=== PATIENT | male | born 1950 | race Caucasian/White ===

== ENCOUNTER 2020-06-06 19:36 | Inpatient (IN) | payer MEDICARE, MEDICAID, SELFPAY ==
[2020-06-06] VITALS (7 sets, daily range): BP systolic 96–118; BP diastolic 52–78; PULSE 95–101; RESP 14–18; TEMP 37; O2SAT 96–98; BMI 23.1
--- NOTE | 2020-06-06 20:12 | ED_ITS ---
HPI - General Adult General: Chief complaint: Fall Stated complaint: HUM FX Time Seen by Provider: 06/06/20 19:50 Source: patient Mode of arrival: EMS Limitations: no limitations History of Present Illness: HPI narrative: Patient is a 69-year-old male who presents to ED today as a direct admit from [facility]. There was no ER to ER consult provided. According to patient and the paperwork accompanying patient, he experienced a seizure last night causing him to fall sustaining right patellar and right humeral fractures. Patient tells me he has a history of epilepsy that he normally treats with [place]. States [place] ER provider had apparently spoken to Dr. Finnegan, hospitalist, who had contacted Dr. Olivas for orthopedic consultation. Patient has no complaints currently apart from pain in his right knee and right shoulder. Onset (ago): day(s) (yesterday) Location: upper extremity (R shoulder) and lower extremity (R knee) Pain Consistency: constant Associated symptoms: Deny chest pain, dyspnea, headache(s), nausea or vomiting Review of Systems Const: Denies: fever(s) or chills Eyes: Denies: change in vision Card: Denies: chest pain Resp: Denies: dyspnea GI: Denies: abdominal pain, nausea or vomiting Musc: Reports: neck pain (chronic), back pain (chronic) and joint pain (R knee, R shoulder) Neuro: Reports: seizure-like activity; Denies: headache(s), numbness in extremities, weakness in extremities or sensory changes PFSH ED PFSH: Medical History Anxiety Chronic pain Seizure disorder Smoking addiction Surgical History History of dental surgery Hx of cholecystectomy Previous back surgery Family History Brother CAD (coronary artery disease) Social History Smoking and tobacco status: current every day smoker cigarettes [ Other cigarette details: Reports daily smoking, less than 1 pack/day. ] Alcohol intake: current Alcohol intake frequency: holidays/special occasions only Substance/Drug Use: never Lives independently: Yes Household members: none Marital status: Physical Exam Const: COMMON NORMALS: no acute distress, patient oriented x3, no limitations and alert Resp: COMMON NORMALS: normal respiratory effort and clear to auscultation bilaterally AUSCULTATION: clear to auscultation bilaterally Cardio: COMMON NORMALS: regular rate and regular rhythm RATE: regular rate RHYTHM: regular rhythm GI: COMMON NORMALS: Normal to inspection, nondistended, normoactive bowel sounds present, Soft to palpation, non-tender, No hepatosplenomegaly present and no masses PALPATION: Yes Soft to palpation and Yes No hepatosplenomegaly present Extremity: OTHER: shoulder in sling; R knee immobilizer; all extremities NV intact Neuro: COMMON NORMALS: patient oriented x3 SENSORIUM/ORIENTATION: Yes alert Skin: COMMON NORMALS: no rashes or lesions noted GENERAL SKIN EXAM: no rashes or lesions noted Course Consultations: Consultation #1: Dr. Keller-is aware of patient from Dr. Finnegan; was not sure if Dr. lOivas was contacted directly and [facility] did not send images with patient's chart so asked if I would contact Dr. Olivas to see if we need to order additional images and to make sure she is aware of consult. He will accept patient. Consultation #2: Dr. Olivas-stated she is aware of patient and neither fracture most likely will not require emergent intervention but she will consult on patient tomorrow. Did recommend we go ahead and obtain repeat images of knee/shoulder since films were not sent. Vital Signs: Vital signs: Vital Signs Temperature 98.6 F 06/06/20 19:50 Pulse Rate 96 06/06/20 20:57 Respiratory Rate 14 06/06/20 20:57 Blood Pressure 100/57 06/06/20 20:57 Pulse Oximetry 98 06/06/20 20:57 Discharge Plan Discharge Patient Disposition: Admitted As Inpatient Admit Provider: Gold Keller Clinical Impression: Seizure, Closed right humeral fracture, Closed fracture of right patella Condition: Stable Coding Level of Care Code ED Jewel Bearing Polisher for Kwasi Cuello
--- NOTE | 2020-06-06 20:34 | XR_ITS ---
WS: [id number] KNEE RIGHT TECHNIQUE: 3 views of the right knee CLINICAL INFORMATION: patellar fracture COMPARISON: None. FINDINGS: Lucency along the tibial plateau at the tibial spine suspicious for nondisplaced fracture. Additional lucency through the mid and inferior patella suspicious for nondisplaced fracture. Tiny suprapatella r effusion. XR/XR knee RT 3V* [id number] IMPRESSION: Suspected nondisplaced fractures involving the tibial plateau at the tibial spi ne and mid and inferior patella. Osteopenia. Recommend further evaluation with CT.
--- NOTE | 2020-06-06 20:34 | XR_ITS ---
WS: [id number] SHOULDER RIGHT TECHNIQUE: 3 views of the right shoulder CLINICAL INFORMATION: need Y view; humeral fracture COMPARISON: Earlier today FINDINGS: Normal acromioclavicular joint. Osteopenia with comminuted right humeral head and neck fracture. Varu s angulation with mild displacement measuring 3.3 mm. No dislocation. XR/XR shoulder RT min 2V* [id number] IMPRESSION: Comminuted humeral head and neck fracture with mild displacement and rotation. Alignment is significantly improved from previous
--- NOTE | 2020-06-06 20:53 | P.HP_ITS ---
Providers/Chief Complaint Chief Complaint: HUM FX History of Present Illness Jairo Suárez is a 69 year old gentleman with history of seizure disorder for which she follows with Dr. Wolf, transferred from [facility] after suffering a seizure and a fall yesterday. Midnight thanks with finding of proximal R humeral as well as R patellar fracture, was transferred here for higher level of care and orthopedic assessment. He reports that he normally takes Keppra at home, and says that his seizure disorder has been controlled for a while. He has not seen Dr. Wolf probably for about a year. He follows regularly with pain medicine due to chronic pain in his back. He lives alone. Review of Systems Const: Reports: other (fall); Denies: fever(s), chills, body aches or malaise Eyes: Denies: change in vision or eye redness ENMT: Denies: throat pain, oral sores or ear or mastoid pain Card: Denies: chest pain, edema, pre-syncope or dyspnea on exertion Resp: Denies: dyspnea, productive cough, change in phlegm color or hemoptysis GI: Denies: abdominal pain, nausea, vomiting, diarrhea, constipation, hematochezia or melena : Denies: flank pain, difficulty urinating, urinary frequency or hematuria Musc: Reports: extremity pain, extremity swelling (Right arm and leg after fall.) and joint pain (R knee pain); Denies: back pain, joint swelling or joint redness Skin/Breast: Denies: rash, sores or new lesions Neuro: Reports: seizure-like activity; Denies: headache(s), numbness in extremities, weakness in extremities, dizziness or confusion Endo: Denies: polyuria or polydipsia Az/Lymph: Denies: easy bleeding or purpura All/Imm: Denies: urticaria, throat swelling or tongue swelling Medications/Allergies Home Medications Medication Instructions Recorded Confirmed Last Taken Type Vitamin B12 Shot See Rx Instructions .ROUTE .COMPLEX 06/06/20 06/06/20 Unknown History diazepam [Valium] 5 mg PO TID PRN 06/06/20 06/06/20 06/06/20 History levetiracetam [Keppra XR] 1,500 mg PO DAILY 06/06/20 06/06/20 06/06/20 History oxycodone-acetaminophen [Percocet] 1 tab PO QID PRN 06/06/20 06/06/20 06/06/20 History Allergies Allergy/AdvReac Type Severity Reaction Status Date / Time Penicillins Allergy Unknown Verified 06/06/20 20:32 all generic antidepressants Allergy Unknown Uncoded 06/06/20 20:32 PFSH Acute PFSH: Medical History Anxiety Chronic pain Seizure disorder Smoking addiction Surgical History History of dental surgery Hx of cholecystectomy Previous back surgery Family History Brother CAD (coronary artery disease) Social History Smoking and tobacco status: current every day smoker cigarettes [ Other cigarette details: Reports daily smoking, less than 1 pack/day. ] Alcohol intake: current Alcohol intake frequency: holidays/special occasions only Substance/Drug Use: never Lives independently: Yes Household members: none Marital status: Vitals/I&O/Wt Last Vital Signs Temp 98.6 F 06/06/20 19:50 Pulse 97 06/06/20 20:07 Resp 17 06/06/20 20:07 BP 96/52 06/06/20 20:07 Pulse Ox 96 06/06/20 20:07 Weight last 48 hrs Weight 64.864 kg Physical Exam Const: COMMON NORMALS: no acute distress and patient oriented x3 GENERAL APPEARANCE: frail appearing HENMT: COMMON NORMALS: oropharynx normal Neck/C-Spine: COMMON NORMALS: no JVD Resp: COMMON NORMALS: normal respiratory effort and clear to auscultation bilaterally AUSCULTATION: clear to auscultation bilaterally Cardio: COMMON NORMALS: no JVD, regular rhythm, S1 normal heart sound present, S2 normal heart sound present and No murmurs present (Cardio) RHYTHM: regular rhythm HEART SOUNDS: S1 normal heart sound present and S2 normal heart sound present GI: COMMON NORMALS: Normal to inspection, nondistended, normoactive bowel sounds present, Soft to palpation and non-tender PALPATION: Yes Soft to palpation Extremity: COMMON NORMALS: no joint enlargement NARRATIVE EXTREMITY EXAM: Right knee swelling. Immobilizer in place. Right shoulder mild swelling. Tender. In sling. Neuro: COMMON NORMALS: patient oriented x3 and moves all extremities Skin: COMMON NORMALS: no rashes or lesions noted GENERAL SKIN EXAM: no rashes or lesions noted A&P Assessment and plan (1) Right patella fracture: With concern for unstable injury transferred here for additional assessment and management. For now will be admitted. Orthopedics will see him in the morning. As he lives by himself, currently with acute fractures including right lower extremity and right arm anticipate significant difficulty with mobility. Immobilizer placed at [facility]. Pain control at this time. Depending on plans for operative management, and recovery, may benefit from placement to halfway facility for rehabilitation prior to return home. Status: Acute (2) Proximal humeral fracture: Right arm sling placed at [facility]. At this time as above. Pain control. Pending assessment by orthopedics tomorrow. Status: Acute (3) Fall: Following a seizure. Subsequently with pain, swelling of right arm, right knee. With noted fractures as above. Lives alone. With right humeral fracture, right patella fracture, for significant ease with mobility and self-care. This discharge planning consultation. Status: Acute (4) Seizure: Due to suspected breakthrough seizure. Chronically on Keppra. Also Valium as needed, although states that this is for anxiety. Follows with Dr. Wolf in office. Continue Keppra at this time. Monitor for any seizure recurrence. Follow-up with neurology. Status: Acute (5) Smoking addiction: He smokes less than a pack a day. Please discuss smoking cessation encourage and assist. Will provide nicotine replacement options at this time. Status: Acute Additional A&P Information Mucus in urine: Reports longstanding history of mucus mixed in urine. Denies dysuria. Denies penile discharge. Denies any ulceration or rash. Has not had sexual contact in he states about 25 years. States that he was previously assessed by his primary care doctor without abnormal finding. For now we will start with UA. Chronic pain: Follows with pain clinic. Anxiety: Continue Valium as needed. States he cannot tolerate generic medications which caused various adverse effects. Attestations Medical Necessity Statement*: Admission of over 2 midnights is continued for assessment of management of breakthrough seizure, fall with fractures of right proximal humerus, right patella. Coding Level of Care Code Acute Brake Shoe Rebuilder for Chg Fwd Diagnoses Right patella fracture S82.001A Proximal humeral fracture S42.209A Fall W19.XXXA Seizure R56.9 Smoking addiction F17.200
[2020-06-06] MEDS: morphine 4 mg/mL SDV 1 mL IVP (23:21)
[2020-06-06] MEDS: sodium chloride 0.9% 1,000 ML 100 ML IV (23:34)
[2020-06-06] MEDS: oxyCODONE-APAP 10-325 mg Tablet 1 TAB PO (23:41)
[2020-06-07] VITALS (12 sets, daily range): BP systolic 104–126; BP diastolic 64–71; PULSE 68–100; RESP 16–20; TEMP 37.2–38.1; O2SAT 95–97
[2020-06-07 03:55] LABS: Basophils % 0.4 %; Eosinophils % 0.2 %; Hematocrit 32.6 % (42.0-52.0); Hemoglobin 10.8 g/dL (11.7-16.6); Lymphocytes # 1.3 10^3/uL (0.8-4.8); Lymphocytes % 14.6 %; Mean Corpuscular HGB Conc 33.1 g/dL (30.0-36.0); Mean Corpuscular Hemoglobin 33.5 pg (28.0-34.0); Mean Corpuscular Volume 101.2 fL (80-94); Mean Platelet Volume 9.2 fL (7.4-10.4); Monocytes # 1.1 10^3/uL (0.2-0.9); Monocytes % 11.9 %; Neutrophils # 6.47 10^3/uL (1.8-7.7); Neutrophils % 72.3 %; Nucleated Red Blood Cells % 0 %; Platelet Count 228 10^3/cmm (130-400); Red Blood Count 3.22 10^6/uL (4.1-5.3); Red Cell Distribution Width 12.5 % (12.1-15.1)
[2020-06-07 04:16] LABS: Anion Gap 12.2 (5-19); Blood Urea Nitrogen 9 mg/dL (8-23); Calcium 8.2 mg/dL (8.5-10.5); Carbon Dioxide 28 mmol/L (22-29); Chloride 96 mmol/L (98-107); Glomerular Filtration Rate 111.5 mL/min (90-130); Glucose 125 mg/dL (65-115); Osmolality Calculated 271 mOsm/kg (285-295); Potassium 4.2 mmol/L (3.5-5.1); Sodium 132 mmol/L (136-145)
[2020-06-07] MEDS: oxyCODONE-APAP 10-325 mg Tablet 1 TAB PO ×3 (06:04→23:54)
--- NOTE | 2020-06-07 06:06 | PC.NURSE ---
Patient states that he has difficulty swallowing his pills therefore he has to leave pills under his tongue to dissolve. This nurse questioned patient about difficulty swallowing food and fluids. Patients states that he must take very small bites and chew very carefully to be able to swallow. He as choked on food in the past and was brought to the ER to remove it. Patient states he does not have difficulty swallowing fluids such as water.
[2020-06-07] MEDS: morphine 4 mg/mL SDV 1 mL IVP ×4 (06:50→21:31)
--- NOTE | 2020-06-07 07:14 | PC.NURSE ---
Patient has not voided since admission last night at 2230. Patient was bladder scanned resulting in 220ml remaining in bladder. Patient states he does not have any discomfort in his abd.
--- NOTE | 2020-06-07 07:30 | CT_ITS ---
WS: [id number] NONCONTRAST CT OF THE RIGHT KNEE TECHNIQUE: Noncontrast CT of the right knee with coronal and sagittal reformatted images. CLINICAL INFORMATION: Query Tibial Plateau fractue COMPARISON: None. DLP: 668.[address] scans at [facility] use at least one of these dose optimization techniques: automat ed exposure control; mA and/or kV adjustment per patient size (includes targeted exams where dose is matched to clinical indication); or iterative reconstruction. FINDINGS: Comminuted slightly depressed fracture involving the medial tibial plateau extending to the tibial sp ine. This involves the medial tibial plateau articular surface with depression measuring 5 mm. Lateral tibial plateau appears normal. Fibula head appears normal. Normal femoral condyles. Comminuted fracture involving the inferior and lateral aspect of the patella. This involves the artic ular surface extending to the patellofemoral articulation. Hypertrophic patella. Moderate suprapatell ar effusion. CT/CT knee RT wo con* [id number] IMPRESSION: 1. Comminuted fractures involving the medial tibial plateau extending to the t ibial spine. Depression measures 5 mm. This extends to the articular surface. 2. Slightly comminuted fracture involving the inferior lateral aspect of the p atella. 3. Moderate suprapatellar effusion.
[2020-06-07] MEDS: diazePAM 5 mg Tablet PO ×2 (08:45→17:18)
[2020-06-07] MEDS: sodium chloride 0.9% 1,000 ML 100 ML IV ×2 (08:46→20:08)
--- NOTE | 2020-06-07 11:11 | PC.CHAP ---
Pastoral Care Encounter/Spiritual Assessment Type of Contact [] Declined leather goods assembler visit [] Patient/Family/Request visit [] Outpatient visit [x] Follow-up visit [] Physician referral [] Code/Alert [] Routine visit [] Staff referral [] Actively dying [] Patient sleeping [] Family support [] [] Out of room [] Palliative care [] [] Receiving care in room [] Pre-surgical visit [] Trauma [] Long length of stay [] ICU visit [] Other: Relational/Emotional Strength [] Patient feels connected with others/family/visitors/staff [] Distress [] Loneliness/isolation [] Abandonment Spirituality of Patient [] Person of Malia [] Attends Jainism of their Malia [] Believes in Prayer [] Reads Bible or Latter Day materials [] There are Spiritual issues to be addressed Tonsorial Artist Interventions [] Prayer [] Active listening [] Non-anxious presence [] Spiritual/emotional support [] Crisis/trauma care [] Spiritual counseling [] Bereavement support [] Provided bereavement packet [] Provided Bible/devotional materials [] Provided toy/stuffed animal, coloring book to patient or family member [] Provided Communion [] Anointing/Arrowsmith [] Salvation [] Completed spiritual assessment [] Other: Impact on Illness or Injury [] Angry [] Fearful [] Anxious [] Often cries [] Exhaustion [] Unable to work [] Unable to attend hindu [] Unable to walk/stand [] Unable to read [] Unable to drive [] Unable to eat/drink [] Unable to sleep [] Unable to be with family [] Patient intubated [] Other: Summary Follow-up visit Time spent with patient 5 mins
[2020-06-07] MEDS: levETIRAcetam 500 mg Tablet PO ×3 (11:58→20:07)
--- NOTE | 2020-06-07 12:44 | P.PN_ITS ---
Subjective Subjective: Interval history: Admitted overnight. H&P and labs noted. On examination patient lying comfortably in bed. States his pain is controlled. He is concerned about her right shoulder. Denies any nausea, vomiting, headache, dizziness, or at present. Vitals/I&O/Wt Last Vital Signs Temp 98.9 F 06/07/20 07:39 Pulse 77 06/07/20 07:39 Resp 16 06/07/20 11:58 BP 112/65 06/07/20 07:39 Pulse Ox 96 06/07/20 07:39 06/06/20 06/07/20 06/07/20 22:59 06:59 14:59 Intake Total 920 / 920 Output Total 0 / 0 Balance 0 / 0 920 / 920 Weight last 48 hrs Weight 53.887 kg Weight 64.864 kg Physical Exam Const: COMMON NORMALS: no acute distress and patient oriented x3 GENERAL APPEARANCE: frail appearing HENMT: COMMON NORMALS: oropharynx normal Neck/C-Spine: COMMON NORMALS: no JVD Resp: COMMON NORMALS: normal respiratory effort and clear to auscultation bilaterally AUSCULTATION: clear to auscultation bilaterally Cardio: COMMON NORMALS: no JVD, regular rhythm, S1 normal heart sound present, S2 normal heart sound present and No murmurs present (Cardio) RHYTHM: regular rhythm HEART SOUNDS: S1 normal heart sound present and S2 normal heart sound present GI: COMMON NORMALS: Normal to inspection, nondistended, normoactive bowel sounds present, Soft to palpation and non-tender PALPATION: Yes Soft to palpation Extremity: COMMON NORMALS: no joint enlargement NARRATIVE EXTREMITY EXAM: Right knee swelling. Immobilizer in place. Right shoulder mild swelling. Tender. In sling. Neuro: COMMON NORMALS: patient oriented x3 and moves all extremities Skin: COMMON NORMALS: no rashes or lesions noted GENERAL SKIN EXAM: no rashes or lesions noted Data : 06/07/20 03:14 06/07/20 03:14 A&P Assessment and plan (1) Breakthrough seizure: Status: Acute (2) Seizure: Status: Acute (3) Closed fracture of right patella: Status: Acute Qualifiers: Encounter type: initial encounter Fracture alignment: nondisplaced Fracture morphology: unspecified fracture morphology Qualified Code(s): S82.001A - Unspecified fracture of right patella, initial encounter for closed fracture (4) Closed right humeral fracture: Status: Acute Qualifiers: Encounter type: initial encounter Fracture alignment: displaced Fracture morphology: other fracture Humerus Location: proximal Qualified Code (s): S42.291A - Other displaced fracture of upper end of right humerus, initial encounter for closed fracture (5) Smoking addiction: Status: Acute (6) Fall: Status: Acute Additional A&P Information Breakthrough seizure/seizure disorder: Patient states he has been having seizures for many years along with multiple history of breakthrough seizures since 2007. Check Keppra levels. Continue home dose of Keppra at 500 mg 3 times daily. Seizure and fall precautions. Closed fracture of right patella: CT knee done. We will follow-up recommendations with Dr. Olivas. Continue the immobilizer placed at [facility] for now. Proximal humerus fracture on the right: X-ray reviewed. We will follow-up recommendations as per Dr. Olivas. Pain control. Chronic smoker: He smokes less than a pack a day. Please discuss smoking cessation encourage and assist. Will provide nicotine replacement options at this time. Anxiety: Continue Valium as needed. Given fracture of the humerus and patella patient would most likely require a SNF placement for further rehabilitation and pain control. Paperwork has been faxed to [facility] as per patient's request. Full code. Pneumatic foot pumps for SCD prophylaxis. We will hold off on therapeutic prophylaxis in case patient requires surgical correction. N.p.o. for now just in case if patient requires any surgical correction. Attestations Medical Necessity Statement*: Breakthrough seizures, fracture right patella, fracture proximal humerus of the right Time Spent in Patient Care: Greater than 35 minutes (>than 50% of time spent in counselling and/or direct pt care on unit) . Coding Level of Care Code Acute Computer Technology Instructor for Kwasi Fwyasmany Diagnoses Breakthrough seizure G40.919 Seizure R56.9 Closed fracture of right patella S82.001A Encounter type: initial encounter Fracture alignment: nondisplaced Fracture morphology: unspecified fracture morphology Closed right humeral fracture S42.291A Encounter type: initial encounter Fracture alignment: displaced Fracture morphology: other fracture Humerus Location: proximal Smoking addiction F17.200 Fall W19.XXXA
[2020-06-07 12:53] LABS: Add Urine Microscopic? NO
[2020-06-07 13:30] LABS: Bilirubin Urine Neg (NEGATIVE); Blood Urine Neg (Negative); Glucose Urine UA Norm (Normal); Ketones Urine 1+ (Negative); Leukocyte Esterase Urine Negative (Negative); Nitrate Urine Negative (Negative); Protein Urine Neg (Negative); Urine Appearance Clear (CLEAR); Urine Color Yellow (Yellow); Urobilinogen Urine 1 mg/dL (Negative); pH Urine 5 (5-7)
[2020-06-07 13:37] LABS: Amphetamines Screen Urine Negative (Negative); Barbiturates Screen Urine Negative (Negative); Benzodiazepines Screen Urine Positive (Negative); Cocaine Screen Urine Negative (Negative); Opiate Screen Urine Positive (Negative); PCP Screen Urine Negative (Negative); THC Screen Urine Negative (Negative)
[2020-06-07 14:39] LABS: Iron 39 ug/dL (59-158); Percent Saturation 18.4 % (20-50); Total Iron Binding Capacity 211 mcg/dl; Unsaturated Iron Binding 172 ug/dL (112-347)
[2020-06-07 14:47] LABS: Thyroid Stimulating Hormone 0.85 uIU/mL (0.27-4.20)
[2020-06-07 14:53] LABS: Vitamin B12 1257 pg/mL (232-1245)
[2020-06-07 14:54] LABS: Folate Level 5.2 ng/mL (4.5-32.2)
--- NOTE | 2020-06-07 14:54 | P.CONIM_ITS ---
Providers/Reason For Consult Consulting Physican/Specialty*: Dr. Callie Olivas - Orthopedics Reason for Consult*: Right shoulder and right knee injury Requesting Physcian: KAREN Oliveira Attending Physician: Esteban Jesus MD History of Present Illness History of Present Illness Jairo Suárez is a 69 year old male who presented to [facility] with regards to injuries which occurred after a fall. The patient has a history of seizures, and reportedly, he had not had one for nearly 7 months. He follows with Dr. Wolf, but he has not seen her for about a year. Upon transfer, the patient was diagnosed with a right patella fracture. He also had a right proximal humerus fracture. He was admitted for further definitive evaluation. On my evaluation of the x-rays prior to seeing the patient, there is irregularity in the proximal tibia as well as the patella. CT scan was ordered and demonstrated that the patient does indeed have a minimally depressed medial tibial plateau fracture in addition to the other 2 fractures for which he was transferred. Review of Systems Const: Denies: fever(s) or chills Eyes: Denies: change in vision Card: Denies: chest pain or dyspnea on exertion Resp: Denies: dyspnea or productive cough GI: Denies: abdominal pain Musc: Reports: extremity pain (Right shoulder and right knee after his fall) and joint pain (Right knee) Skin/Breast: Denies: erythema or changes in skin color Neuro: Reports: seizure-like activity (Which resulted in his current fall); Denies: numbness in extremities Psych: Denies: anxiety or depression Az/Lymph: Denies: easy bruising or easy bleeding Meds/Allergies Home Medications and Allergies Home Medications Medication Instructions Recorded Confirmed Last Taken Type Vitamin B12 Shot See Rx Instructions .ROUTE .COMPLEX 06/06/20 06/06/20 Unknown History diazepam [Valium] 5 mg PO TID PRN 06/06/20 06/06/20 06/06/20 History levetiracetam [Keppra XR] 1,500 mg PO DAILY 06/06/20 06/06/20 06/06/20 History oxycodone-acetaminophen [Percocet] 1 tab PO QID PRN 06/06/20 06/06/20 06/06/20 History Allergies Allergy/AdvReac Type Severity Reaction Status Date / Time Penicillins Allergy Mild ALGY-Hives Verified 06/06/20 22:51 all generic antidepressants AdvReac Intermediate ADR-Anxiety Uncoded 06/06/20 22:51 Current Medications Current Medications Generic Name Dose Route Start Last Admin Trade Name Freq PRN Reason Stop Dose Admin Diazepam 5 mg 06/06/20 22:27 06/07/20 08:45 Valium PO 5 mg TID PRN Administration unknown Sodium Chloride 1,000 mls @ 50 mls/hr 06/06/20 22:27 06/07/20 08:46 Sodium Chloride 0.9% IV 100 mls/hr .Q20H MAGDA Administration Levetiracetam 500 mg 06/07/20 09:00 06/07/20 11:58 Keppra PO 500 mg TID MAGDA Administration Morphine Sulfate 4 mg 06/06/20 22:27 06/07/20 11:58 Morphine IVP 4 mg Q4H PRN Administration SEVERE PAIN Oxycodone/Acetaminophen 1 tab 06/06/20 23:30 06/07/20 06:04 Percocet 10-325 Mg PO 1 tab Q6H PRN Administration MODERATE PAIN PFSH Acute PFSH: Medical History Anxiety Chronic pain Seizure Seizure disorder Smoking addiction Surgical History History of dental surgery Hx of cholecystectomy Previous back surgery Family History Brother CAD (coronary artery disease) Social History Smoking and tobacco status: current every day smoker cigarettes [ Other cigarette details: Reports daily smoking, less than 1 pack/day. ] Alcohol intake: current Alcohol intake frequency: holidays/special occasions only Substance/Drug Use: never Lives independently: Yes Household members: none Marital status: Vitals/I&O/Wt Last Vital Signs Temp 98.9 F 06/07/20 07:39 Pulse 77 06/07/20 07:39 Resp 16 06/07/20 11:58 BP 112/65 06/07/20 07:39 Pulse Ox 96 06/07/20 07:39 06/06/20 06/07/20 06/07/20 22:59 06:59 14:59 Intake Total 920 / 920 Output Total 0 / 0 Balance 0 / 0 920 / 920 Weight last 48 hrs Weight 118 lb 12.8 oz Weight 143 lb Physical Exam Const: COMMON NORMALS: no acute distress, average body habitus, patient oriented x3 and alert GENERAL APPEARANCE: cooperative and comfortable ORIENTATION/CONSCIOUSNESS: Yes awake HENMT: COMMON NORMALS: normocephalic and atraumatic HEAD & SCALP: normocephalic and atraumatic Eye: GENERAL EYE: appearance normal, both eyes and all related structures Chest: COMMONS NORMALS: normal inspection of the chest Resp: COMMON NORMALS: normal respiratory effort EFFORT & INSPECTION: Yes able to speak in complete sentences and Yes symmetric chest movement Extremity: RIGHT UPPER EXTREMITY: Yes shoulder joint (There is bruising about the proximal humerus. The patient was placed in an immobilizer earlier today upon my order. He complains of pain in this area.) Right shoulder: Yes Right shoulder joint inspection exam (Ecchymosis is present throughout the entire upper arm.), Yes palpation, Yes Right shoulder joint ROM exam (Not evaluated secondary to fracture. The patient is immobilized.), Yes Right shoulder joint neurovascular exam (Intact distal to the fracture site) and Yes Right shoulder joint other findings (There is tenderness to palpation over the proximal humerus.) RIGHT LOWER EXTREMITY: Yes knee joint Right knee: Yes inspection (There is no significant bruising. There is a very small abrasion over the anterior knee.), Yes palpation (The knee is tender to palpation about the medial tibial plateau as well as the patella.), Yes ROM (Not tested secondary to fracture) and Yes neurovascular exam (Intact distal to the fracture site) Neuro: COMMON NORMALS: patient oriented x3 SENSORIUM/ORIENTATION: Yes alert Psych: COMMON NORMALS: mental status grossly normal APPEARANCE: Yes grossly normal ATTITUDE: Yes calm and Yes engaged ATTENTION/CONCENTRATION: Yes attention grossly intact Skin: COMMON NORMALS: no rashes or lesions noted GENERAL SKIN EXAM: no rashes or lesions noted Data Imaging^: Other CT: I personally reviewed and interpreted this imaging study as follows: My impression: After review of the x-rays, a CT of the patient's right knee was ordered. Findings are as follows. The patient has a minimally depressed tibial plateau fracture. The depression is approximately 4 to 5 mm. And involves primarily the medial tibial plateau and extends the tibial spine. Additionally, the patient has a comminuted fracture involving the inferior lateral aspect of the patella with out compromise of the patellar mechanism. Xray Ortho: I personally reviewed and interpreted this imaging study as follows: My impression: 3 views of the patient's right shoulder were evaluated and reviewed. The images demonstrate a fracture through the surgical neck of the humerus and the humeral head appears somewhat comminuted. There is slight rotation. It is felt that the fracture is in acceptable position for healing without surgical intervention at this point. Other Xray: I personally reviewed and interpreted this imaging study as follows: My impression: Patient's knee images are reviewed. There is irregularity along the patella, but there are also multiple fracture lines apparent through the medial tibial plateau. A CT scan was ordered to further characterize the nature of this apparent tibial plateau fracture. A&P Assessment and plan (1) Right medial tibial plateau fracture: Patient has a right medial tibial plateau fracture with 4 to 5 mm of d epression. There is some comminution, but no significant displacement. At this point, the patient is being treated in a knee immobilizer. Once he has been medically stabilized, we will further discuss the possibility of surgical intervention with a lateral plate for support of this tibial plateau fracture. It is in acceptable position, however, to proceed with nonoperative interventions and treatment as well. Of concern, the patient has the right humerus fracture which would preclude him from partial to nonweightbearing that would be required after surgical intervention. Status: Acute Qualifiers: Encounter type: initial encounter Fracture type: closed Qualified Code(s): S82.131A - Displaced fracture of medial condyle of right tibia, initial encounter for closed fracture (2) Proximal humeral fracture: Currently, the patient is being treated in a shoulder immobilizer. His bones are quite osteopenic, and any sort of open reduction internal fixation would likely result in hardware failure and nonunion. Since it is in acceptable position without dislocation, we will treat him with a shoulder immobilizer for approximately 2 to 3 months. We will then begin him on a range of motion and strengthening program. If he is unable to use this extremity appropriately, we would then consider possible surgical intervention in the form of a proximal humeral prosthesis. Status: Acute Qualifiers: Encounter type: initial encounter Fracture type: closed Fracture morphology: other fracture Fracture alignment: displaced Laterality: right Qualified Code(s): S42.291A - Other displaced fracture of upper end of right humerus, initial encounter for closed fracture (3) Right patella fracture: Patient currently is in a knee immobilizer. We will continue this both as treatment for his tibial plateau fracture as well as for his patellar fracture. Consideration would be given to hinged knee brace for the medial tibial plateau fracture, however, with the patella fracture we will maintain a knee immobilizer at this point in time. Status: Acute Qualifiers: Encounter type: initial encounter Fracture type: closed Fracture morphology: comminuted Fracture alignment: displaced Qualified Code(s): S82.041A - Displaced comminuted fracture of right patella, initial encounter for closed fracture (4) Fall: Status: Acute Qualifiers: Encounter type: initial encounter Qualified Code(s): W19.XXXA - Unspecified fall, initial encounter Coding Level of Care Code Acute Traditional [employer] Health Practitioner for [facility] Fwd Diagnoses Right medial tibial plateau fracture S82.131A Encounter type: initial encounter Fracture type: closed Proximal humeral fracture S42.291A Encounter type: initial encounter Fracture type: closed Fracture morphology: other fracture Fracture alignment: displaced Laterality: right Right patella fracture S82.041A Encounter type: initial encounter Fracture type: closed Fracture morphology: comminuted Fracture alignment: displaced Fall W19.XXXA Encounter type: initial encounter
[2020-06-07] MEDS: nicotine 21 mg Patch 1 PATCH TRANSDERMA (17:18)
[2020-06-07] MEDS: acetaminophen 325 mg Tablet 650 MG PO (20:07)
[2020-06-08] VITALS (12 sets, daily range): BP systolic 97–122; BP diastolic 61–72; PULSE 82–103; RESP 14–18; TEMP 36.6–37.6; O2SAT 92–98
[2020-06-08] MEDS: morphine 4 mg/mL SDV 1 mL IVP ×3 (02:29→12:13)
[2020-06-08] MEDS: diazePAM 5 mg Tablet PO (03:58)
[2020-06-08 04:43] LABS: Basophils % 0.6 %; Eosinophils # 0.1 10^3/uL (0.0-0.8); Eosinophils % 1.3 %; Hematocrit 27.4 % (42.0-52.0); Hemoglobin 8.9 g/dL (11.7-16.6); Lymphocytes # 1.2 10^3/uL (0.8-4.8); Lymphocytes % 17.8 %; Mean Corpuscular HGB Conc 32.5 g/dL (30.0-36.0); Mean Corpuscular Hemoglobin 34.5 pg (28.0-34.0); Mean Corpuscular Volume 106.2 fL (80-94); Mean Platelet Volume 9.4 fL (7.4-10.4); Monocytes # 0.7 10^3/uL (0.2-0.9); Monocytes % 10.8 %; Neutrophils # 4.66 10^3/uL (1.8-7.7); Neutrophils % 69.1 %; Nucleated Red Blood Cells % 0 %; Platelet Count 192 10^3/cmm (130-400); Red Blood Count 2.58 10^6/uL (4.1-5.3); Red Cell Distribution Width 12.5 % (12.1-15.1); White Blood Count 6.8 10^3/uL (4.0-10.0)
[2020-06-08 05:15] LABS: Chol HDL Ratio 1.81 mg/dL (1.0-5.00); Cholesterol 87 mg/dL (0-200); HDL Cholesterol 48 mg/dL (60-100); LDL Cholesterol Calculated 27 mg/dL (50-129); Triglycerides 62 mg/dL (0-150); VLDL Cholestrol Calculation 12 mg/dL (0-30)
[2020-06-08 05:20] LABS: Alanine Aminotransferase 11 U/L (0-41); Albumin Level 3.1 g/dL (3.5-5.2); Alkaline Phosphatase 61 IU/L (40-130); Anion Gap 9.7 (5-19); Aspartate Amino Transferase 14 U/L (0-40); Blood Urea Nitrogen 7 mg/dL (8-23); Calcium 7.5 mg/dL (8.5-10.5); Carbon Dioxide 26 mmol/L (22-29); Chloride 95 mmol/L (98-107); Globulin 2.3 g/dL (1.3-4.6); Glomerular Filtration Rate 133.2 mL/min (90-130); Glucose 103 mg/dL (65-115); Osmolality Calculated 260 mOsm/kg (285-295); Potassium 3.7 mmol/L (3.5-5.1); Sodium 127 mmol/L (136-145); Total Bilirubin 0.6 mg/dL (0.15-1.2); Total Protein 5.4 g/dL (6.6-8.7)
[2020-06-08 05:30] LABS: Estmated Average Glucose 80; Hemoglobin A1C 4.4 % (4.0-6.0)
[2020-06-08] MEDS: oxyCODONE-APAP 10-325 mg Tablet 1 TAB PO ×3 (09:18→21:47)
[2020-06-08] MEDS: levETIRAcetam 500 mg Tablet PO ×3 (09:18→21:49)
--- NOTE | 2020-06-08 12:51 | P.PN_ITS ---
Subjective Subjective: Interval history: Patient is lying comfortably in bed. His shoulder does not appear particularly tender, but he has not been out of bed with physical therapy at all. He understands he will likely require fdc at the time of discharge. Vitals/I&O/Wt Last Vital Signs Temp 97.9 F 06/08/20 11:57 Pulse 101 H 06/08/20 11:57 Resp 16 06/08/20 12:13 BP 111/64 06/08/20 11:57 Pulse Ox 97 06/08/20 11:57 06/07/20 06/08/20 06/08/20 22:59 06:59 14:59 Intake Total 1000 / 1920 1000 / 1000 Output Total 425 / 425 250 / 250 Balance 575 / 1495 750 / 750 Weight last 48 hrs Weight 118 lb 12.8 oz Weight 143 lb Physical Exam Const: COMMON NORMALS: no acute distress, average body habitus, patient oriented x3 and alert GENERAL APPEARANCE: cooperative and comfortable ORIENTATION/CONSCIOUSNESS: Yes awake HENMT: COMMON NORMALS: normocephalic and atraumatic HEAD & SCALP: normocephalic and atraumatic Eye: GENERAL EYE: appearance normal, both eyes and all related structures Chest: COMMONS NORMALS: normal inspection of the chest Resp: COMMON NORMALS: normal respiratory effort EFFORT & INSPECTION: Yes able to speak in complete sentences and Yes symmetric chest movement Extremity: RIGHT UPPER EXTREMITY: Yes shoulder joint (The right upper extremity is bruised secondary to the patient's fracture. There has been no sig nificant deformity to the arm.) Right shoulder: Yes Right shoulder joint inspection exam (Neurovascular status appears intact.), Yes Right shoulder joint ROM exam (Not evaluated secondary to fracture. There is some tenderness to palpation over the proximal humerus.) and Yes Right shoulder joint neurovascular exam (Intact distal to the fracture.) RIGHT LOWER EXTREMITY: Yes knee joint (The knee remains in a knee immobilizer.) Right knee: Yes inspection (No significant swelling distal to the immobilizer.), Yes ROM (Not tested secondary to fracture.) and Yes neurovascular exam (Intact distal to the fracture.) Neuro: COMMON NORMALS: patient oriented x3 SENSORIUM/ORIENTATION: Yes alert Psych: COMMON NORMALS: mental status grossly normal APPEARANCE: Yes grossly normal ATTITUDE: Yes calm and Yes engaged ATTENTION/CONCENTRATION: Yes attention grossly intact Skin: COMMON NORMALS: no rashes or lesions noted GENERAL SKIN EXAM: no rashes or lesions noted Data : 06/08/20 03:50 06/08/20 03:50 A&P Assessment and plan (1) Right medial tibial plateau fracture: Patient has a right medial tibial plateau fracture with 4 to 5 mm of depression. There is some comminution, but no significant displacement. At this point, now that we have the CT result, the patient will be transitioned to a Dickey style hinged knee brace. We will set this at 0 to 30 degrees. Also, we will have him participate with physical therapy nonweightbearing to touchdown weightbearing if necessary. Once he has been medically stabilized, we will further discuss the possibility of surgical intervention with a lateral plate for support of this tibial plateau fracture, but this will be done in a delayed fashion. It is in acceptable position, however, to proceed with nonoperative interventions and treatment as well. Of concern, the patient has the right humerus fracture which would preclude him from partial to nonweightbearing that would be required after surgical intervention. Status: Acute Qualifiers: Encounter type: initial encounter Fracture type: closed Qualified Code(s): S82.131A - Displaced fracture of medial condyle of right tibia, initial encounter for closed fracture (2) Proximal humeral fracture: Currently, the patient is being treated in a shoulder immobilizer. His bones are quite osteopenic, and any sort of open reduction internal fixation would likely result in hardware failure and nonunion. Since it is in acceptable position without dislocation, we will treat him with a shoulder immobilizer for approximately 2 to 3 months. We will then begin him on a range of motion and strengthening program. If he is unable to use this extremity appropriately, we would then consider possible surgical intervention in the form of a proximal humeral prosthesis. Status: Acute Qualifiers: Encounter type: initial encounter Fracture alignment: displaced Fracture morphology: other fracture Fracture type: closed Laterality: right Qualified Code(s): S42.291A - Other displaced fracture of upper end of right humerus, initial encounter for closed fracture (3) Right patella fracture: Patient currently is in a knee immobilizer, he will be transitioned to a Dickey style knee brace. We will continue this both as treatment for his tibial plateau fracture as well as for his patellar fracture. Status: Acute Qualifiers: Encounter type: initial encounter Fracture alignment: displaced Fracture morphology: comminuted Fracture type: closed Qualified Code(s): S82.041A - Displaced comminuted fracture of right patella, initial encounter for closed fracture (4) Fall: Status: Acute Qualifiers: Encounter type: initial encounter Qualified Code(s): W19.XXXA - Unspecified fall, initial encounter Attestations Medical Necessity Statement*: Patient continues to require hospitalization for medical evaluation of his seizure activity. 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
[2020-06-08] MEDS: nicotine 21 mg Patch 1 PATCH TRANSDERMA (13:18)
--- NOTE | 2020-06-08 13:58 | PM.PN ---
Subjective Subjective: Interval history: Admitted overnight. H&P and labs noted. On examination patient lying comfortably in bed. States his pain is controlled. He is concerned about her right shoulder. Denies any nausea, vomiting, headache, dizziness, or at present. Vitals/I&O/Wt Last Vital Signs Temp 97.9 F 06/08/20 11:57 Pulse 101 H 06/08/20 11:57 Resp 16 06/08/20 12:13 BP 111/64 06/08/20 11:57 Pulse Ox 97 06/08/20 11:57 06/07/20 06/08/20 06/08/20 22:59 06:59 14:59 Intake Total 1000 / 1920 1000 / 1000 Output Total 425 / 425 250 / 250 Balance 575 / 1495 750 / 750 Weight last 48 hrs Weight 53.887 kg Weight 64.864 kg Physical Exam Const: COMMON NORMALS: no acute distress and patient oriented x3 GENERAL APPEARANCE: frail appearing HENMT: COMMON NORMALS: oropharynx normal Neck/C-Spine: COMMON NORMALS: no JVD Resp: COMMON NORMALS: normal respiratory effort and clear to auscultation bilaterally AUSCULTATION: clear to auscultation bilaterally Cardio: COMMON NORMALS: no JVD, regular rhythm, S1 normal heart sound present, S2 normal heart sound present and No murmurs present (Cardio) RHYTHM: regular rhythm HEART SOUNDS: S1 normal heart sound present and S2 normal heart sound present GI: COMMON NORMALS: Normal to inspection, nondistended, normoactive bowel sounds present, Soft to palpation and non-tender PALPATION: Yes Soft to palpation Extremity: COMMON NORMALS: no joint enlargement NARRATIVE EXTREMITY EXAM: Right knee swelling. Immobilizer in place. Right shoulder mild swelling. Tender. In sling. Neuro: COMMON NORMALS: patient oriented x3 and moves all extremities Skin: COMMON NORMALS: no rashes or lesions noted GENERAL SKIN EXAM: no rashes or lesions noted Data : 06/08/20 03:50 06/08/20 03:50 A&P Assessment and plan (1) Breakthrough seizure: Status: Acute (2) Seizure: Due to suspected breakthrough seizure. Chronically on Keppra. Also Valium as needed, although states that this is for anxiety. Follows with Dr. Wolf in office. Continue Keppra at this time. Monitor for any seizure recurrence. Follow-up with neurology. Status: Acute (3) Closed fracture of right patella: Status: Acute Qualifiers: Encounter type: initial encounter Fracture alignment: nondisplaced Fracture morphology: unspecified fracture morphology Qualified Code(s): S82.001A - Unspecified fracture of right patella, initial encounter for closed fracture (4) Closed right humeral fracture: Status: Acute Qualifiers: Encounter type: initial encounter Fracture alignment: displaced Fracture morphology: other fracture Humerus Location: proximal Qualified Code(s): S42.291A - Other displaced fracture of upper end of right humerus, initial encounter for closed fracture (5) Smoking addiction: He smokes less than a pack a day. Please discuss smoking cessation encourage and assist. Will provide nicotine replacement options at this time. Status: Acute (6) Fall: Following a seizure. Subsequently with pain, swelling of right arm, right knee. With noted fractures as above. Lives alone. With right humeral fracture, right patella fracture, for significant ease with mobility and self-care. This discharge planning consultation. Status: Acute Qualifiers: Encounter type: initial encounter Qualified Code(s): W19.XXXA - Unspecified fall, initial encounter Additional A&P Information Breakthrough seizure/seizure disorder: Patient states he has been having seizures for many years along with multiple history of breakthrough seizures since 2007. Keppra levels awaited. Continue home dose of Keppra at 500 mg 3 times daily. Seizure and fall precautions. Closed fracture of right patella: CT knee done. C/w PT recs as per Dr. Olivas of non weight bearing. Proximal humerus fracture on the right: X-ray reviewed. C/w shoulder immobilizer. We will follow-up recommendations as per Dr. Olivas. Pain control. Anemia: Most likely dilutional along with MOI. Vit B12 and folate levels appreciated. Hb today 8.4. Patient is hemodynamically stable. No active bleeding. Will transfuse if hb less than 7. Start on oral iron supplementation. Check FOBT Chronic smoker: He smokes less than a pack a day. Please discuss smoking cessation encourage and assist. Will provide nicotine replacement options at this time. Anxiety: Continue Valium as needed. Given fracture of the humerus and patella patient would most likely require a SNF placement for further rehabilitation and pain control. Paperwork has been faxed to [facility] as per patient's request. ALLOW [employer] Pneumatic foot pumps for SCD prophylaxis. We will hold off on therapeutic prophylaxis in case patient requires surgical correction. Soft mechanical diet. Diet has been changed as per the speech and swallow recommendations. Stop IV fluids. COVID-19 has been sent yesterday and the results are awaited for possible need of negative result before being transferred to the halfway. Attestations Medical Necessity Statement*: Breakthrough seizures, right patellar and proximal humerus fracture, awaiting safe discharge plan, COVID-19 to be ruled out Time Spent in Patient Care: Greater than 35 minutes (>than 50% of time spent in counselling and/or direct pt care on unit). 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
[2020-06-08] MEDS: ferrous gluconate 324 mg Tablet PO (18:59)
[2020-06-08 20:10] LABS: Coronavirus Lab Test PTC Negative
[2020-06-09] VITALS (8 sets, daily range): BP systolic 106–119; BP diastolic 62–71; PULSE 78–87; RESP 14–20; TEMP 36.7–37.2; O2SAT 18–98
[2020-06-09] MEDS: oxyCODONE-APAP 10-325 mg Tablet 1 TAB PO ×3 (03:44→13:38)
[2020-06-09 05:00] LABS: Basophils % 0.5 %; Eosinophils # 0.1 10^3/uL (0.0-0.8); Eosinophils % 1.5 %; Hematocrit 25.2 % (42.0-52.0); Hemoglobin 8.4 g/dL (11.7-16.6); Lymphocytes # 1.2 10^3/uL (0.8-4.8); Lymphocytes % 18.3 %; Mean Corpuscular HGB Conc 33.3 g/dL (30.0-36.0); Mean Corpuscular Hemoglobin 34.3 pg (28.0-34.0); Mean Corpuscular Volume 102.9 fL (80-94); Monocytes # 0.7 10^3/uL (0.2-0.9); Monocytes % 9.9 %; Neutrophils # 4.53 10^3/uL (1.8-7.7); Neutrophils % 69.2 %; Nucleated Red Blood Cells % 0 %; Platelet Count 209 10^3/cmm (130-400); Red Blood Count 2.45 10^6/uL (4.1-5.3); Red Cell Distribution Width 12.4 % (12.1-15.1); White Blood Count 6.6 10^3/uL (4.0-10.0)
[2020-06-09] MEDS: levETIRAcetam 500 mg Tablet PO (08:43)
[2020-06-09] MEDS: ferrous gluconate 324 mg Tablet PO (08:43)
--- NOTE | 2020-06-09 11:08 | DCPLANNER ---
Pg 2 of IM updated and reviewed with pt. No questions.
--- NOTE | 2020-06-09 12:36 | PM.DCS ---
Discharge Providers Date of Admission: 06/06/20 20:54 Date of Discharge: June 09, 2020 Attending Provider at Admission: Gold Keller Attending Provider at Discharge: Esteban Jesus MD Consults: Orthopedics: Dr. Olivas Diagnoses at Discharge Discharge Diagnosis (1) Breakthrough seizure: Status: Acute (2) Seizure: Status: Acute (3) Closed fracture of right patella: Status: Acute Qualifiers: Encounter type: initial encounter Fracture alignment: nondisplaced Fracture morphology: unspecified fracture morphology Qualified Code(s): S82.001A - Unspecified fracture of right patella, initial encounter for closed fracture (4) Closed right humeral fracture: Status: Acute Qualifiers: Encounter type: initial encounter Fracture alignment: displaced Fracture morphology: other fracture Humerus Location: proximal Qualified Code(s): S42.291A - Other displaced fracture of upper end of right humerus, initial encounter for closed fracture (5) Smoking addiction: Status: Acute (6) Fall: Status: Acute Qualifiers: Encounter type: initial encounter Qualified Code(s): W19.XXXA - Unspecified fall, initial encounter Reason for Visit Reason for Visit: [facility] Hospital Course Discharge Summary: Jairo Suárez is a 69 year old gentleman with history of seizure disorder for which she follows with Dr. Wolf, transferred from [facility] after suffering a seizure and a fall yesterday. Midnight thanks with finding of proximal R humeral as well as R patellar fracture, was transferred here for higher level of care and orthopedic assessment. He reports that he normally takes Keppra at home, and says that his seizure disorder has been controlled for a while. He has not seen Dr. Wolf probably for about a year. He follows regularly with pain medicine due to chronic pain in his back. He lives alone. For his fracture on the right patella and proximal humerus he was seen by orthopedics and was advised for conservative treatment with pain management and physical therapy for now with possible surgery later. Patient is to follow-up with Dr. Olivas as an outpatient. He most likely require surgical intervention with lateral plate for support of his tibial plateau fracture. For shoulder he supposed to be in immobilizer for approximately 2 to 3 months. Patient did not have any further seizures while being in hospital. He was hemodynamically stable. During hospitalization his hemoglobin plateaued at around 8.4 which most likely is his baseline. Iron panel showed iron deficiency anemia and so is been discharged on oral iron supplementation. He is advised to follow-up with Dr. Wolf within 1 month. He is been discharged hemodynamically stable condition. Physical Exam Const: COMMON NORMALS: no acute distress and patient oriented x3 GENERAL APPEARANCE: frail appearing HENMT: COMMON NORMALS: oropharynx normal Neck/C-Spine: COMMON NORMALS: no JVD Resp: COMMON NORMALS: normal respiratory effort and clear to auscultation bilaterally AUSCULTATION: clear to auscultation bilaterally Cardio: COMMON NORMALS: no JVD, regular rhythm, S1 normal heart sound present, S2 normal heart sound present and No murmurs present (Cardio) RHYTHM: regular rhythm HEART SOUNDS: S1 normal heart sound present and S2 normal heart sound present GI: COMMON NORMALS: Normal to inspection, nondistended, normoactive bowel sounds present, Soft to palpation and non-tender PALPATION: Yes Soft to palpation Extremity: COMMON NORMALS: no joint enlargement NARRATIVE EXTREMITY EXAM: Right knee swelling. Immobilizer in place. Right shoulder mild swelling. Tender. In sling. Neuro: COMMON NORMALS: patient oriented x3 and moves all extremities Skin: COMMON NORMALS: no rashes or lesions noted GENERAL SKIN EXAM: no rashes or lesions noted Discharge Data Data Completed and Pending: Completed Studies During Hospitalization Category Date Time Status CT knee RT wo con * [id number] Routine Cat Scan 06/07/20 07:30 Completed XR knee RT 3V* [id number] Urgent Exams 06/06/20 20:34 Completed XR shoulder RT mi n 2V* [id number] Urgent Exams 06/06/20 20:34 Completed Pending at discharge Category Date Time Status Immunochemical Fe sierra OCB Routine Lab 06/08/20 11:23 Uncollected Levetiracetam Kep pra Routine Lab 06/07/20 03:14 Received Labs from last 24 hours 06/09/20 06/07/20 04:50 19:20 WBC 6.6 RBC 2.45 L Hgb 8.4 L Hct 25.2 L MCV 102.9 H MCH 34.3 H MCHC 33.3 RDW 12.4 Plt Count 209 MPV 9.0 Neut % (Auto) 69.2 Lymph % (Auto) 18.3 Reynolds % (Auto) 9.9 Eos % (Auto) 1.5 Baso % (Auto) 0.5 Neut # (Auto) 4.53 Lymph # (Auto) 1.2 Reynolds # (Auto) 0.7 Eos # (Auto) 0.1 Baso # (Auto) 0.0 Nucleated RBC % (a uto) 0 Nucleated RBCs # 0.0 Nasal/Oral COVID-1 9 PCR Negative Vitals: Last Vital Signs Temp 98.2 F 06/09/20 11:01 Pulse 79 06/09/20 11:01 Resp 18 06/09/20 11:01 BP 106/68 06/09/20 11:01 Pulse Ox 98 06/09/20 11:01 Discharge Plan Discharge Patient Disposition: Xfer SNF Condition: Stable Prescriptions: New ferrous gluconate 324 mg (37.5 mg iron) Tablet 324 mg PO BIDWM Qty: 60 RF: 0 folic acid 1 mg tablet 1 mg PO DAILY Qty: 30 RF: 0 Continued Percocet 7.5-325 mg Tablet 1 tab PO QID PRN (Reason: Pain) RF: 0 Valium 5 mg Tablet 5 mg PO TID PRN (Reason: unknown) RF: 0 Keppra XR 750 mg Tablet Extended Release 24 Hr 1,500 mg PO DAILY RF: 0 Vitamin B12 Shot See Rx Instructions .ROUTE .COMPLEX RF: 0 Discharge Orders: Discharge Order (Routine); Ordered 06/09/20 Ordered By: Esteban Jesus Referrals: [facility] [Outside] Salima Wolf MD [Physician] - 1 month Callie Olivas MD [Physician] - 7-10 days Discharge Diet: Regular Discharge Activity: Use walker/crutches as instructed, Wheelchair as instructed and As per PT/OT instructions Activity Restrictions/Additional Instructions: Nonweightbearing right lower extremity Follow up with Dr. Olivas on set appointment Discharge Attestations Time Spent in Discharge Care*: greater than 30 min Specific Discharge Activities: Specific discharge activities: educating patient, discussing with pcp/other providers, discussing with top case assembler/social workers/dc planners, documenting/other paperwork and evaluating patient/reviewing data Status at Discharge: Cognitive status at discharge: cognitively intact, Behavioral status at discharge: cooperative, Functional status at discharge: other assisted ambulation Overall status at discharge: patient is not back to baseline Quality Metrics Clinical Quality Measures During this hospital stay, did patient experience: None Coding Level of Care Code Acute Director Of Materials Management for [facility] Fwd Diagnoses Breakthrough seizure G40.919 Seizure R56.9 Closed fracture of right patella S82.001A Encounter type: initial encounter Fracture alignment: nondisplaced Fracture morphology: unspecified fracture morphology Closed right humeral fracture S42.291A Encounter type: initial encounter Fracture alignment: displaced Fracture morphology: other fracture Humerus Location: proximal Smoking addiction F17.200 Fall W19.XXXA Encounter type: initial encounter
[2020-06-09] MEDS: diazePAM 5 mg Tablet PO (13:38)
--- NOTE | 2020-06-09 14:51 | P.PN_ITS ---
Subjective Subjective: Interval history: The first time, the patient is sitting up in a chair. He is anxious to get back to bed. His knee immobilizer is in place. His knee is not hot or red or swollen. He has no significant complaints. He is awaiting transport to longterm. Vitals/I&O/Wt Last Vital Signs Temp 98.2 F 06/09/20 11:01 Pulse 79 06/09/20 11:01 Resp 16 06/09/20 13:38 BP 106/68 06/09/20 11:01 Pulse Ox 98 06/09/20 11:01 06/08/20 06/09/20 06/09/20 22:59 06:59 14:59 Intake Total 200 / 1400 240 / 1640 250 / 250 Output Total 650 / 1200 1025 / 2225 600 / 600 Balance -450 / 200 -785 / -585 -350 / -350 Weight last 48 hrs Weight 160 lb 9 oz Physical Exam Const: COMMON NORMALS: no acute distress, average body habitus, patient oriented x3 and alert GENERAL APPEARANCE: cooperative and comfortable ORIENTATION/CONSCIOUSNESS: Yes awake HENMT: COMMON NORMALS: normocephalic and atraumatic HEAD & SCALP: normocephalic and atraumatic Eye: GENERAL EYE: appearance normal, both eyes and all related structures Chest: COMMONS NORMALS: normal inspection of the chest Resp: COMMON NORMALS: normal respiratory effort EFFORT & INSPECTION: Yes able to speak in complete sentences and Yes symmetric chest movement Extremity: RIGHT UPPER EXTREMITY: Yes shoulder joint (Remains in the immobilizer. There is still ecchymosis. He remains neurologically intact.) RIGHT LOWER EXTREMITY: Yes knee joint (The abrasion over the knee still appears without evidence of infection. There is no erythema. There is minimal to no swelling.) Neuro: COMMON NORMALS: patient oriented x3 SENSORIUM/ORIENTATION: Yes alert Psych: COMMON NORMALS: mental status grossly normal APPEARANCE: Yes grossly normal ATTITUDE: Yes calm and Yes engaged ATTENTION/CONCENTRATION: Yes attention grossly intact Skin: COMMON NORMALS: no rashes or lesions noted GENERAL SKIN EXAM: no rashes or lesions noted Data : 06/09/20 04:50 06/08/20 03:50 A&P Assessment and plan (1) Right medial tibial plateau fracture: Patient has a right medial tibial plateau fracture with 4 to 5 mm of depression. There is some comminution, but no significant displacement. The patient is advised to continue with the [place] style hinged knee brace. We will set this at 0 to 30 degrees. Also, we will have him participate with physical therapy nonweightbearing to touchdown weightbearing if necessary. Once he has been medically stabilized, we will further discuss the possibility of surgical intervention with a lateral plate for support of this tibial plateau fracture, but this will be done in an outpatient fashion if determined necessary. It is in acceptable position, however, to proceed with nonoperative interventions and treatment as well. Of concern, the patient has the right humerus fracture which would preclude him from partial to nonweightbearing that would be required after surgical intervention. Status: Acute Qualifiers: Encounter type: initial encounter Fracture type: closed Qualified Code(s): S82.131A - Displaced fracture of medial condyle of right tibia, initial encounter for closed fracture (2) Proximal humeral fracture: Currently, the patient is being treated in a shoulder immobilizer. His bones are quite osteopenic, and any sort of open reduction internal fixation w ould likely result in hardware failure and nonunion. Since it is in acceptable position without dislocation, we will treat him with a shoulder immobilizer for approximately 2 to 3 months. We will then begin him on a range of motion and strengthening program. If he is unable to use this extremity appropriately, we would then consider possible surgical intervention in the form of a proximal humeral prosthesis. Status: Acute Qualifiers: Encounter type: initial encounter Fracture type: closed Fracture morphology: other fracture Fracture alignment: displaced Laterality: right Qualified Code(s): S42.291A - Other displaced fracture of upper end of right humerus, initial encounter for closed fracture (3) Right patella fracture: Patient currently is in a knee immobilizer, he will be transitioned to a [place] style knee brace. We will continue this both as treatment for his tibial plateau fracture as well as for his patellar fracture. Status: Acute Qualifiers: Encounter type: initial encounter Fracture type: closed Fracture morphology: comminuted Fracture alignment: displaced Qualified Code(s): S82.041A - Displaced comminuted fracture of right patella, initial encounter for closed fracture (4) Fall: Status: Acute Qualifiers: Encounter type: initial encounter Qualified Code(s): W19.XXXA - Unspecified fall, initial encounter Attestations Medical Necessity Statement*: Per hospitalist service, the patient is to be discharged today. Coding Level of Care Code Acute Senior Quality Engineer for [facility] Fwd Diagnoses Right medial tibial plateau fracture S82.131A Encounter type: initial encounter Fracture type: closed Proximal humeral fracture S42.291A Encounter type: initial encounter Fracture type: closed Fracture morphology: other fracture Fracture alignment: displaced Laterality: right Right patella fracture S82.041A Encounter type: initial encounter Fracture type: closed Fracture morphology: comminuted Fracture alignment: displaced Fall W19.XXXA Encounter type: initial encounter
--- NOTE | 2020-06-09 14:53 | PC.NURSE ---
Report to Rocio SHAH at [facility] at this time.
--- NOTE | 2020-06-09 15:30 | PC.NURSE ---
Patient assisted to a wheel chair at this time. Patient has sling and swath in place to the right arm as well as a knee immobilizer to the right leg. Patient IV removed intact. Patient's belongings including his home medications sent with patient in his belongings bag. Rocio at [facility] notified of the prescriptions in the patient's belongings bag. Patient is A&Ox3. Respirations even and non-labored on room air. Patient pushed to transport van to be taken to [facility].
[2020-06-11 10:56] LABS: Levetiracetam Keppra 10.6 mcg/mL
== END 2020-06-09 15:15 | disposition skilled nursing facility (03) | DRG 563 ==
LOC: ER 20:33 → MEDSURG 21:22
PROVIDERS: Emergency Medicine; Admitting Provider Internal Medicine; Visit Provider Student in an Organized Health Care Education/Training Program
DX: S82.001A Unspecified fracture of right patella, initial encounter for closed fracture (principal); S42.209A Unspecified fracture of upper end of unspecified humerus, initial encounter for closed fracture; S82.251A Displaced comminuted fracture of shaft of right tibia, initial encounter for closed fracture; W19.XXXA Unspecified fall, initial encounter; F17.210 Nicotine dependence, cigarettes, uncomplicated; R56.9 Unspecified convulsions; F41.9 Anxiety disorder, unspecified; G89.29 Other chronic pain
CPT/HCPCS: 12345; 36415; 73030; 73562; 73700; 80048; 80053; 80061; 80177; 80306; 81003; 82607; 82746; 83036; 83540; 83550; 84443; 85025; 87635; 92610; 96375; 97110; 97161; 97530; 97760; 99283; J2270; J7030; L3670

== ENCOUNTER → 2020-07-07 11:28 | Outpatient (BNVA) | payer OTHER, MEDICAID, SELFPAY | PROVIDERS: Visit Provider Specialist | DX: S82.001A Unspecified fracture of right patella, initial encounter for closed fracture (principal); S42.291A Other displaced fracture of upper end of right humerus, initial encounter for closed fracture; S82.002A Unspecified fracture of left patella, initial encounter for closed fracture; S82.131A Displaced fracture of medial condyle of right tibia, initial encounter for closed fracture; X58.XXXA Exposure to other specified factors, initial encounter | CPT/HCPCS: 73030; 73560; 73565 ==

== ENCOUNTER → 2020-08-11 11:32 | Outpatient (BNVA) | payer OTHER, MEDICAID, SELFPAY | PROVIDERS: Visit Provider Specialist | DX: S82.001A Unspecified fracture of right patella, initial encounter for closed fracture (principal); S42.291A Other displaced fracture of upper end of right humerus, initial encounter for closed fracture; S82.131A Displaced fracture of medial condyle of right tibia, initial encounter for closed fracture; S82.002A Unspecified fracture of left patella, initial encounter for closed fracture; X58.XXXA Exposure to other specified factors, initial encounter | CPT/HCPCS: 73030; 73562 ==

== ENCOUNTER → 2020-09-15 16:12 | Outpatient (BNVA) | payer MEDICARE, MEDICAID, SELFPAY | PROVIDERS: Visit Provider Specialist | DX: S42.291A Other displaced fracture of upper end of right humerus, initial encounter for closed fracture (principal); S82.131A Displaced fracture of medial condyle of right tibia, initial encounter for closed fracture; S82.001A Unspecified fracture of right patella, initial encounter for closed fracture; S82.002A Unspecified fracture of left patella, initial encounter for closed fracture; S82.141D Displaced bicondylar fracture of right tibia, subsequent encounter for closed fracture with routine healing | CPT/HCPCS: 73030; 73562 ==

== ENCOUNTER → 2020-11-07 13:54 | Outpatient (BNVA) | payer MEDICARE, MEDICAID, SELFPAY | PROVIDERS: Visit Provider Specialist | DX: S82.131D Displaced fracture of medial condyle of right tibia, subsequent encounter for closed fracture with routine healing (principal); S82.001D Unspecified fracture of right patella, subsequent encounter for closed fracture with routine healing; S42.291D Other displaced fracture of upper end of right humerus, subsequent encounter for fracture with routine healing; X58.XXXD Exposure to other specified factors, subsequent encounter; Z46.89 Encounter for fitting and adjustment of other specified devices | CPT/HCPCS: 73030; 73560; 73562; 97760; L1851 ==

== ENCOUNTER 2020-11-07 15:03 | Outpatient (CLI) | payer MEDICARE, MEDICAID, SELFPAY | END 2020-11-07 15:04 | disposition home or self-care (01) | LOC: SPT 15:04 | PROVIDERS: Visit Provider Specialist | DX: Z46.89 Encounter for fitting and adjustment of other specified devices (principal); S82.131D Displaced fracture of medial condyle of right tibia, subsequent encounter for closed fracture with routine healing; X58.XXXD Exposure to other specified factors, subsequent encounter | CPT/HCPCS: 97760; L1851 ==

== ENCOUNTER 2021-02-03 13:54 | Emergency (ER) | payer MEDICARE, MEDICAID, SELFPAY ==
[2021-02-03 13:59] VITALS: BP 171/86; PULSE 86; RESP 20; TEMP 36.8; O2SAT 98; BMI 20.5
--- NOTE | 2021-02-03 14:07 | XR_ITS ---
WS: [id number] Portable AP upright chest, 02/03/2021 Clinical Data: dyspnea Comparison: PA and lateral chest, 06/29/2019. Findings: No nodules, masses or effusions are seen. The heart is normal. The pulmonary vascularity is not increased. No pneumonia or pneumothorax is seen. The aortic arch and descending aorta shows calc ification and tortuosity. Monitor leads are on the chest wall. The diaphragms are flattened. XR/XR chest 1V portable [id number] Impression: Atherosclerosis and hyperinflation.
--- NOTE | 2021-02-03 14:09 | ECG_ITS ---
[facility] Test Date: 2021-02-03 Pat Name: Jairo Suárez Department: Room: Gender: Male Floor Supervisor: : 1950 Requested By: Jj Dolan Order Number: [id number] Ade MD: WAQAR RINCON Measurements Intervals [place] Rate: 94 P: 43 NH: 172 QRS: -38 QRSD: 96 T: 75 QT: 379 QTc: 475 Interpretive Statements SINUS RHYTHM POSSIBLE LEFT ATRIAL ENLARGEMENT [-0.1mV P WAVE IN V1/V2] LEFT AXIS DEVIATION [QRS AXIS < -30] POSSIBLE RIGHT VENTRICULAR CONDUCTION DELAY [RSR (QR) IN V1/V2] LEFT VENTRICULAR HYPERTROPHY AND ST-T CHANGE [VOLTAGE CRITERIA PLUS ST/T ABNORMALITY] PROBABLE ANTEROLATERAL MYOCARDIAL INFARCTION , OF INDETERMINATE AGE [35 ms Q WAVE IN I/aVL/V3-V6] Compared to ECG 06/29/2019 18:51:25 Left-axis deviation now present Left ventricular hypertrophy now present Electronically Signed On 02-03-2021 19:23:40 MEDICAL COMMUNICATION SPECIALIST by WAQAR RINCON [email or web address]
[2021-02-03 14:17] LABS: Basophils # 0.1 10^3/uL (0.0-0.1); Basophils % 0.8 %; Eosinophils # 0.2 10^3/uL (0.0-0.8); Eosinophils % 2.8 %; Hematocrit 42.2 % (42.0-52.0); Hemoglobin 14.3 g/dL (11.7-16.6); Lymphocytes # 2.5 10^3/uL (0.8-4.8); Lymphocytes % 34.8 %; Mean Corpuscular HGB Conc 33.9 g/dL (30.0-36.0); Mean Corpuscular Hemoglobin 31.9 pg (28.0-34.0); Mean Corpuscular Volume 94.2 fL (80-94); Mean Platelet Volume 9.4 fL (7.4-10.4); Monocytes # 0.6 10^3/uL (0.2-0.9); Monocytes % 8.1 %; Neutrophils # 3.86 10^3/uL (1.8-7.7); Neutrophils % 53.2 %; Nucleated Red Blood Cells % 0 %; Platelet Count 370 10^3/cmm (130-400); Red Blood Count 4.48 10^6/uL (4.1-5.3); Red Cell Distribution Width 11.6 % (12.1-15.1); White Blood Count 7.3 10^3/uL (4.0-10.0)
--- NOTE | 2021-02-03 14:24 | ED_ITS ---
HPI - Seizure General: Chief Complaint: Seizure Stated Complaint: SEIZURE Time Seen by Provider: 02/03/21 14:02 History of Present Illness: HPI Narrative: The patient is a 70-year-old male with past medical history seizure disorder who comes to the ER after a seizure. Unknown how long but he was found in a car with multiple empty alcohol containers. He says he recently stopped taking his seizure medication and started smoking marijuana to try to help with his seizures and he does not remember the names of any of his seizure medications. complaint: seizure Witnessed: No Trauma: No Seizure History: Yes Possible Precipitating Event: none Associated symptoms: Deny chest pain or confusion Review of Systems General: Reports: 10 or more systems reviewed and unremarkable except in HPI and below Const: Denies: fatigue Eyes: Denies: change in vision, blurry vision or eye redness ENMT: Denies: throat pain, swelling of lips/tongue, ear or mastoid pain or nasal congestion Card: Denies: chest pain, palpitations, irregular heart rhythm, edema, dyspnea on exertion or orthopnea Resp: Denies: dyspnea, productive cough or non-productive cough GI: Denies: abdominal pain, diarrhea or GI cramping : Denies: flank pain, urinary frequency or urinary urgency Musc: Denies: neck pain, back pain, extremity pain, joint pain, joint redness, limited range of motion or muscle weakness Skin/Breast: Denies: rash, pruritus, erythema, skin pain or skin tenderness Neuro: Denies: headache(s), numbness in extremities, weakness in extremities, sensory changes, difficulty walking, dizziness, confusion or Slurred speech present Psych: Denies: anxiety or depression Endo: Denies: polyuria All/Imm: Denies: urticaria, throat swelling or tongue swelling PFSH ED PFSH: Medical History Anxiety Chronic pain Seizure Seizure disorder Smoking addiction Surgical History History of dental surgery Hx of cholecystectomy Previous back surgery Family History Brother CAD (coronary artery disease) Social History Smoking and tobacco status: current every day smoker cigarettes [ Other cigarette details: Reports daily smoking, less than 1 pack/day. ] Alcohol intake: current Alcohol intake frequency: holidays/special occasions only Lives independently: Yes Household members: none Marital status: Physical Exam Const: COMMON NORMALS: no acute distress, average body habitus, patient oriented x3, no limitations, healthy appearing, alert and well nourished GENERAL APPEARANCE: cooperative, comfortable, well kempt and well developed ORIENTATION/CONSCIOUSNESS: Yes awake, Yes oriented to person, Yes oriented to place and Yes oriented to time HENMT: COMMON NORMALS: normocephalic, external ears normal and Normal external nose present HEAD & SCALP: normal to inspection and normocephalic NOSE: Normal external nose present EXTERNAL EAR: Yes external ears normal MOUTH: Normal oral and palatal mucosa present THROAT: posterior oropharynx normal Eye: COMMON NORMALS: Equal, round and reactive pupils present and EOMs intact bilaterally GENERAL EYE: appearance normal, both eyes and all related structures PUPIL: Yes Equal, round and reactive pupils present Neck/C-Spine: COMMON NORMALS: full ROM, no lymphadenopathy, no meningeal signs and no JVD GENERAL: Yes normal visual inspection Lymph: LYMPHATIC: no lymphadenopathy noted Chest: COMMONS NORMALS: normal inspection of the chest and normal palpation of entire chest wall Resp: COMMON NORMALS: normal respiratory effort, No retractions, No use of accessory muscles, clear to auscultation bilaterally and percussion normal EFFORT & INSPECTION: Yes able to speak in complete sentences AUSCULTATION: clear to auscultation bilaterally PERCUSSION: percussion normal Cardio: COMMON NORMALS: no JVD, regular rate, regular rhythm, S1 normal heart sound present, S2 normal heart sound present and Peripheral pulses 2+ throughout RATE: regular rate RHYTHM: regular rhythm HEART SOUNDS: S1 normal heart sound present and S2 normal heart sound present PERIPHERAL PULSES: Peripheral pulses 2+ throughout GI: COMMON NORMALS: Normal to inspection, nondistended, normoactive bowel sounds present, Soft to palpation, non-tender and no masses INSPECTION: Yes normal to inspection PALPATION: Yes Soft to palpation : COMMON NORMALS: Yes no CVA tenderness BLADDER/KIDNEY EXAM: Yes no CVA tenderness Back/Pelvis: COMMON NORMALS: no CVA tenderness, thoracic and lumbar spine normal to inspection, no thoracic nor lumbar tenderness and thoraco-lumbar ROM normal Extremity: COMMON NORMALS: normal to inspection, full ROM, capillary refill normal, no joint enlargement and no pedal edema GENERAL: Yes normal exam except as noted Neuro: COMMON NORMALS: patient oriented x3, CN's II-XII intact bilaterally, moves all extremities, no focal motor deficits, no sensory deficits noted and gait normal SENSORIUM/ORIENTATION: Yes alert, Yes oriented to person, Yes oriented to place and Yes oriented to time MENINGEAL SIGNS: Yes no meningeal signs Psych: COMMON NORMALS: mental status grossly normal, Normal thought process present, cooperative, normal affect and speech normal APPEARANCE: Yes well kempt ATTITUDE: Yes calm SPEECH: Yes normal speech THOUGHT PROCESS: Normal thought process present Skin: COMMON NORMALS: no rashes or lesions noted GENERAL SKIN EXAM: no rashes or lesions noted Course Vital Signs: Vital signs: Vital Signs Temperature 98.2 F 02/03/21 13:59 Pulse Rate 100 02/03/21 17:06 Respiratory Rate 19 H 02/03/21 17:06 Blood Pressure 143/79 02/03/21 17:06 Pulse Oximetry 97 02/03/21 17:06 MDM - Seizure MDM Narrative: Medical decision making narrative: The patient likely had a seizure. Discussed with his primary care physician Piotr Pickens who says he was supposed to be taking Keppra 1500 mg daily but has not been taking it and decided to smoke marijuana instead. After a few hours the patient feels better and is ready for discharge. He was loaded with Keppra and discharged with a prescription for 750 mg p.o. twice daily. Follow-up with primary care physician Saturday to get refills. He understands and aware he needs his potassium checked as well. ER with return of symptoms. Discontinue illicit substances Lab Data: Labs: Lab Results 02/03/21 02/03/21 02/03/21 Range/Units 14:13 14:13 14:13 WBC 7.3 (4.0-10.0) 10^3/ uL RBC 4.48 (4.1-5.3) 10^6/u L Hgb 14.3 (11.7-16.6) g/dL Hct 42.2 (42.0-52.0) % MCV 94.2 H (80-94) fL MCH 31.9 (28.0-34.0) pg MCHC 33.9 (30.0-36.0) g/dL RDW 11.6 L (12.1-15.1) % Plt Count 370 (130-400) 10^3/c mm MPV 9.4 (7.4-10.4) fL Neut % (Auto) 53.2 % Lymph % (Auto) 34.8 % [place] % (Auto) 8.1 % Eos % (Auto) 2.8 % Baso % (Auto) 0.8 % Neut # (Auto) 3.86 (1.8-7.7) 10^3/u L Lymph # (Auto) 2.5 (0.8-4.8) 10^3/u L [place] # (Auto) 0.6 (0.2-0.9) 10^3/u L Eos # (Auto) 0.2 (0.0-0.8) 10^3/u L Baso # (Auto) 0.1 (0.0-0.1) 10^3/u L Nucleated RBC % (a uto) 0 % Nucleated RBCs # 0.0 /100WBC Sodium 136 (136-145) mmol/L Potassium 2.9 L (3.5-5.1) mmol/L Chloride 93 L (98-107) mmol/L Carbon Dioxide 27 (22-29) mmol/L Anion Gap 18.9 (5-19) BUN 5 L (8-23) mg/dL Creatinine 0.7 (0.7-1.2) mg/dL GFR Calculation Not Reportable Glucose 91 (65-115) mg/dL Calculated Osmolal ity 279 L (285-295) mOsm/k g Lactate (0.5-2.2) mmol/L Calcium 9.5 (8.5-10.5) mg/dL Total Bilirubin 0.5 (0.15-1.2) mg/dL AST 12 (0-40) U/L ALT 6 (0-41) U/L Alkaline Phosphata se 122 (40-130) IU/L Creatine Kinase 63 (39-308) U/L Troponin T Baselin e 12 (0-15) ng/L Troponin T 120 Min [place] (0-15) ng/L Delta Troponin T (0-10) ABS# NT-Pro-B Natriuret Pep 234 H (0-125) pg/mL Total Protein 7.1 (6.6-8.7) g/dL Albumin 4.7 (3.5-5.2) g/dL Globulin 2.4 (1.3-4.6) g/dL Urine Color (Yellow) Urine Appearance (CLEAR) Urine pH (5-7) Ur Specific Gravit y (1.005-1.030) Urine Protein (Negative) Urine Glucose (UA) (Normal) Urine Ketones (Negative) Urine Blood (Negative) Urine Nitrate (Negative) Urine Bilirubin (Negative) Urine Urobilinogen (Negative) mg/dL Ur Leukocyte Paty ase (Negative) Ethyl Alcohol < 10 (0-10) mg/dL 02/03/21 02/03/21 02/03/21 Range/Units 16:12 16:23 16:23 WBC (4.0-10.0) 10^3/ uL RBC (4.1-5.3) 10^6/u L Hgb (11.7-16.6) g/dL Hct (42.0-52.0) % MCV (80-94) fL MCH (28.0-34.0) pg MCHC (30.0-36.0) g/dL RDW (12.1-15.1) % Plt Count (130-400) 10^3/c mm MPV (7.4-10.4) fL Neut % (Auto) % Lymph % (Auto) % [place] % (Auto) % Eos % (Auto) % Baso % (Auto) % Neut # (Auto) (1.8-7.7) 10^3/u L Lymph # (Auto) (0.8-4.8) 10^3/u L [place] # (Auto) (0.2-0.9) 10^3/u L Eos # (Auto) (0.0-0.8) 10^3/u L Baso # (Auto) (0.0-0.1) 10^3/u L Nucleated RBC % (a uto) % Nucleated RBCs # /100WBC Sodium (136-145) mmol/L Potassium (3.5-5.1) mmol/L Chloride (98-107) mmol/L Carbon Dioxide (22-29) mmol/L Anion Gap (5-19) BUN (8-23) mg/dL Creatinine (0.7-1.2) mg/dL GFR Calculation Glucose (65-115) mg/dL Calculated Osmolal ity (285-295) mOsm/k g Lactate 1.0 (0.5-2.2) mmol/L Calcium (8.5-10.5) mg/dL Total Bilirubin (0.15-1.2) mg/dL AST (0-40) U/L ALT (0-41) U/L Alkaline Phosphata se (40-130) IU/L Creatine Kinase (39-308) U/L Troponin T Baselin e (0-15) ng/L Troponin T 120 Min [place] 16.24 H (0-15) ng/L Delta Troponin T 4.24 (0-10) ABS# NT-Pro-B Natriuret Pep (0-125) pg/mL Total Protein (6.6-8.7) g/dL Albumin (3.5-5.2) g/dL Globulin (1.3-4.6) g/dL Urine Color Yellow (Yellow) Urine Appearance Clear (CLEAR) Urine pH 6.5 (5-7) Ur Specific Gravit y 1.010 (1.005-1.030) Urine Protein Neg (Negative) Urine Glucose (UA) Norm (Normal) Urine Ketones Negative (Negative) Urine Blood Neg (Negative) Urine Nitrate Negative (Negative) Urine Bilirubin Neg (Negative) Urine Urobilinogen 1 H (Negative) mg/dL Ur Leukocyte Paty ase Negative (Negative) Ethyl Alcohol (0-10) mg/dL Discharge Plan Discharge Patient Disposition: Home Clinical Impression: Seizure Condition: Stable Prescriptions: New Keppra 750 mg tablet 750 mg PO Q12H 14 Days Qty: 28 RF: 0 No Action (DME) 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 See Rx Instructions .Route .MEDSUPPLY Qty: 1 RF: 0 oxycodone-acetaminophen [Percocet] 7.5-325 mg Tablet 1 tab PO QID PRN (Reason: Pain) RF: 0 diazepam [Valium] 5 mg Tablet 5 mg PO TID PRN (Reason: unknown) RF: 0 levetiracetam [Keppra XR] 750 mg Tablet Extended Release 24 Hr 1,500 mg PO DAILY RF: 0 Vitamin B12 Shot See Rx Instructions .ROUTE .COMPLEX RF: 0 ferrous gluconate 324 mg (37.5 mg iron) Tablet 324 mg PO BIDWM Qty: 60 RF: 0 folic acid 1 mg tablet 1 mg PO DAILY Qty: 30 RF: 0 Discharge Orders: Discharge ED (Routine); Ordered 02/03/21 Ordered By: Jj Dolan Discharge Diet: Advance as tolerated Discharge Activity: Resume usual activity Patient Instructions: Opioid Safety, Seizures Activity Restrictions/Additional Instructions: You have had a seizure likely from not taking her seizure medications. I have discussed with your primary care physician who recommends starting you back on Keppra. Please take the medicine as directed and return to the ER with worsening symptoms. Follow-up with your primary care doctor Saturday and get a refill of your medications. Please discontinue illicit substances. Coding Level of Care Code ED Shoe Stitcher for Kwasi Fwd Exam Comprehensive
[2021-02-03 14:26] VITALS: BP 160/85; PULSE 90; RESP 14; O2SAT 97
[2021-02-03 14:37] LABS: Troponin(5th) Baseline 12 ng/L (0-15)
[2021-02-03] MEDS: sodium chloride 0.9% 1,000 ML 999 ML IV (14:39)
[2021-02-03 15:03] LABS: Alanine Aminotransferase 6 U/L (0-41); Albumin Level 4.7 g/dL (3.5-5.2); Alkaline Phosphatase 122 IU/L (40-130); Anion Gap 18.9 (5-19); Aspartate Amino Transferase 12 U/L (0-40); Blood Urea Nitrogen 5 mg/dL (8-23); Calcium 9.5 mg/dL (8.5-10.5); Carbon Dioxide 27 mmol/L (22-29); Chloride 93 mmol/L (98-107); Creatine Phosphokinase 63 U/L (39-308); Globulin 2.4 g/dL (1.3-4.6); Glucose 91 mg/dL (65-115); NT Pro B Type Natriuretic Pept 234 pg/mL (0-125); Osmolality Calculated 279 mOsm/kg (285-295); Sodium 136 mmol/L (136-145); Total Bilirubin 0.5 mg/dL (0.15-1.2); Total Protein 7.1 g/dL (6.6-8.7)
[2021-02-03 15:04] LABS: Alcohol Level < 10 mg/dL (0-10); Potassium 2.9 mmol/L (3.5-5.1)
--- NOTE | 2021-02-03 16:09 | ECG_ITS ---
[facility] Test Date: 2021-02-03 Pat Name: Jairo Suárez Department: Room: Gender: Male [employer] Officer: : 1950 Requested By: Jj Dolan Order Number: [id number] Ade MD: WAQAR RINCON Measurements Intervals [place] Rate: 79 P: 58 IN: 188 QRS: -35 QRSD: 109 T: 60 QT: 416 QTc: 479 Interpretive Statements SINUS RHYTHM LEFT AXIS DEVIATION [QRS AXIS < -30] POSSIBLE RIGHT VENTRICULAR CONDUCTION DELAY [RSR (QR) IN V1/V2] MINIMAL VOLTAGE CRITERIA FOR LVH, CONSIDER NORMAL VARIANT [MEETS CRITERIA IN ONE OF: R(aVL), S(V1), R(V5), R(V5/V6)+S(V1)] PROBABLE ANTEROLATERAL MYOCARDIAL INFARCTION , OF INDETERMINATE AGE [35 ms Q WAVE IN I/aVL/V3-V6] Compared to ECG 02/03/2021 14:06:13 ST (T wave) deviation no longer present Myocardial infarct finding still present Electronically Signed On 02-03-2021 19:25:14 COLORS CUSTODIAN by WAQAR RINCON [email or web address]
[2021-02-03 16:30] LABS: Add Urine Microscopic? NO
[2021-02-03 16:35] LABS: Urine Color Yellow (Yellow)
[2021-02-03 16:36] LABS: Bilirubin Urine Neg (Negative); Blood Urine Neg (Negative); Glucose Urine UA Norm (Normal); Ketones Urine Negative (Negative); Leukocyte Esterase Urine Negative (Negative); Nitrate Urine Negative (Negative); Protein Urine Neg (Negative); Urine Appearance Clear (CLEAR); Urobilinogen Urine 1 mg/dL (Negative); pH Urine 6.5 (5-7)
[2021-02-03 17:02] LABS: Troponin 5 2HR 16.24 ng/L (0-15); Troponin 5 2HR Delta 4.24 ABS# (0-10)
[2021-02-03] MEDS: potassium chloride ER 20 mEq Tablet 40 MEQ PO (17:05)
[2021-02-03 17:06] VITALS: BP 143/79; PULSE 100; RESP 19; O2SAT 97
== END 2021-02-03 17:53 | disposition home or self-care (01) ==
PROVIDERS: Emergency Provider Family Medicine
DX: R56.9 Unspecified convulsions (principal); F17.210 Nicotine dependence, cigarettes, uncomplicated; I70.0 Atherosclerosis of aorta
CPT/HCPCS: 36415; 71045; 80053; 80307; 81003; 82550; 83605; 83880; 84484; 85025; 93005; 96361; 96374; 99284; J1953; J7030

== ENCOUNTER → 2021-05-08 15:47 | Outpatient (BNVA) | payer MEDICARE, MEDICAID, SELFPAY | PROVIDERS: Visit Provider Specialist | DX: S42.291D Other displaced fracture of upper end of right humerus, subsequent encounter for fracture with routine healing (principal); X58.XXXD Exposure to other specified factors, subsequent encounter | CPT/HCPCS: 73030 ==